=== PATIENT | female | born 1985 | race Two or more races ===

== ENCOUNTER 2020-01-26 00:41 | Inpatient (IN) | payer MEDICAID ==
[~2020-01-26] VITALS: Ht 167.6 cm; Wt 51.3 kg
[2020-01-26] MEDS ORDERED: METHYLPREDNISOLONE SOD SUCC 125 MG/2 ML VIAL IV STA (01:22)
[2020-01-26] MEDS ORDERED: SODIUM CHLORIDE 0.9% 1,000 ML IV ONE (01:22)
[2020-01-26] MEDS ORDERED: MAGNESIUM 2 G PREMIX 50 ML IV ONE (01:30)
[2020-01-26 02:01] LABS: *BARBITURATES SCREEN URINE NEGATIVE (NEGATIVE)
[2020-01-26 02:02] LABS: *BENZODIAZEPINES SCREEN URINE NEGATIVE (NEGATIVE); *COCAINE SCREEN URINE NEGATIVE (NEGATIVE); CANNABINOID URINE SCREEN NEGATIVE (NEGATIVE); METHADONE URINE SCREEN NEGATIVE (NEGATIVE); PHENCYCLIDINE URINE SCREEN NEGATIVE (NEGATIVE)
[2020-01-26 02:04] LABS: *AMPHETAMINES SCREEN URINE PRESUMTIVE POSITIVE (NEGATIVE); OPIATES URINE SCREEN PRESUMTIVE POSITIVE (NEGATIVE)
[2020-01-26 02:25] LABS: BG DEOXYHEMOGLOBIN 6.8 % (0.0-5.0); BG FRACTION INSPIRED OXYGEN 28; BG METHEMOGLOBIN 0.2 % (0.0-1.5); BG OXYGEN SATURATION 93.1 % (92.0-98.5); BG PCO2 44.3 mmHg (35.0-45.0); BG PH 7.333 (7.350-7.450); BG PO2 70.9 mmHg (75.0-100.0); BG SAMPLE SITE RIGHT BRACHIAL; BG TOTAL HEMOGLOBIN 14.5 g/dL (12.0-18.0); BG VENT MODE NASAL CANNULA
[2020-01-26 02:42] LABS: BASOPHILS % 0.6 % (0.0-2.0); EOSINOPHILS % 2.2 % (0.0-5.0); HEMATOCRIT. 47.1 % (36.0-48.0); HEMOGLOBIN. 15.8 g/dL (12.0-16.0); LYMPHOCYTES % 8.8 % (20.0-50.0); MEAN CORPUSCULAR HEMOGLOBIN 27.9 pg (28.0-32.0); MEAN CORPUSCULAR VOLUME 83.2 fL (81.0-99.0); MEAN PLATELET VOLUME 7.8 fl (7.4-10.4); MONOCYTES % 2.6 % (2.0-8.0); NEUTROPHILS % 85.8 % (40.0-76.0); PLATELET 334 x1000/uL (130-400); RED BLOOD CELL COUNT 5.67 mill/uL (4.2-5.4); RED CELL DISTRIBUTION WIDTH 14.5 % (11.6-14.6)
[2020-01-26 02:46] LABS: CHLORIDE 104 mEq/L (98-107)
[2020-01-26] MEDS ORDERED: ACETAMINOPHEN 325MG TABLET PO PRN ×2 (06:30)
[2020-01-26] MEDS ORDERED: KETOROLAC 15MG/ML VIAL IV PRN (06:30)
[2020-01-26] MEDS ORDERED: ONDANSETRON HCL 4MG/2ML INJ IV PRN (06:30)
[2020-01-26] MEDS ORDERED: CLONIDINE 0.1MG TABLET PO PRN (06:30)
[2020-01-26] MEDS ORDERED: IPRATROPIUM/ALBUTEROL 0.5-3(2.5)MG/3ML NEB HHN SCH (06:30)
[2020-01-26] MEDS ORDERED: DOCUSATE SODIUM 100MG CAPSULE PO PRN (06:30)
[2020-01-26] MEDS ORDERED: GUAIFENESIN 200MG/10ML SUGAR FREE UDC PO PRN (06:30)
[2020-01-26] MEDS ORDERED: LORAZEPAM 0.5MG TABLET PO PRN (06:30)
[2020-01-26] MEDS ORDERED: NITROGLYCERIN 0.4MG TABLET SL SL PRN (06:30)
[2020-01-26] MEDS ORDERED: MAGNESIUM/ALUMINUM HYDROXIDE/SIMETHICONE 30ML UDC PO PRN (06:30)
[2020-01-26] MEDS ORDERED: IPRATROPIUM/ALBUTEROL 0.5-3(2.5)MG/3ML NEB NEB PRN (06:30)
[2020-01-26] MEDS: METHYLPREDNISOLONE SOD SUCC 125 MG/2 ML VIAL IV SCH ×3 (08:29→22:13)
[2020-01-26] MEDS ORDERED: AZITHROMYCIN 500 MG in DEXT 5% WATER 250 ML IV SCH (09:00)
[2020-01-26] MEDS: ENOXAPARIN 40MG/0.4ML SYR SUBCUT SCH (09:00)
[2020-01-26] MEDS ORDERED: FAMOTIDINE 20MG TABLET PO SCH (09:00)
[2020-01-26] MEDS: ZINC SULFATE 220 MG ( 50 ) CAPSULE PO SCH (09:54)
[2020-01-26] MEDS: GUAIFENESIN/DM 600MG/30MG ER TAB 12HR PO SCH ×2 (09:54→22:12)
[2020-01-26] MEDS: ASCORBIC ACID 500 MG TABLET PO SCH ×2 (09:54→22:12)
[2020-01-26 15:43] LABS: CREATINE KINASE 46 IU/L (26-192)
[2020-01-26 15:44] LABS: CREATINE KINASE MB FRACTION < 1.0 ng/mL (0.5-3.6)
[2020-01-26] MEDS ORDERED: ZOLPIDEM TARTRATE 5MG TABLET PO PRN (21:00)
[2020-01-26 21:30] VITALS: BP 110/65
[2020-01-26] MEDS: FAMOTIDINE 10MG TABLET PO SCH (22:12)
[2020-01-26 23:07] VITALS: BP 110/65
[2020-01-27] MEDS ORDERED: ALBUTEROL 6.7GM HFA INHALER ORI SCH
[2020-01-27 00:09] LABS: CREATINE KINASE 42 IU/L (26-192)
[2020-01-27 00:10] LABS: CREATINE KINASE MB FRACTION < 1.0 ng/mL (0.5-3.6)
[2020-01-27 00:42] VITALS: BP 114/72
[2020-01-27] MEDS: METHYLPREDNISOLONE SOD SUCC 125 MG/2 ML VIAL IV SCH ×2 (07:13→14:00)
[2020-01-27 07:54] VITALS: BP 116/68
[2020-01-27] MEDS: ZINC SULFATE 220 MG ( 50 ) CAPSULE PO SCH (08:47)
[2020-01-27] MEDS: ENOXAPARIN 40MG/0.4ML SYR SUBCUT SCH ×2 (08:47→08:54)
[2020-01-27] MEDS: FAMOTIDINE 10MG TABLET PO SCH (08:47)
[2020-01-27] MEDS: ASCORBIC ACID 500 MG TABLET PO SCH (08:47)
[2020-01-27] MEDS: GUAIFENESIN/DM 600MG/30MG ER TAB 12HR PO SCH (08:47)
[2020-01-27] MEDS ORDERED: AZITHROMYCIN 250 MG in DEXT 5% WATER 250 ML IV SCH (09:00)
[2020-01-27 12:00] VITALS: BP 133/85
[2020-01-27 15:09] VITALS: BP 133/85
== END 2020-01-27 16:45 | disposition home or self-care (01) | DRG 133 ==
LOC: ER 00:41 → EDBEDREQTM 01:57 → 7WST 04:31 → EDBEDREQ 04:37 → EDBEDREQSVC 04:37 → EDBEDREQTM 04:37 → ENRESERV 19:43 → 8WST 01-27 03:53
PROVIDERS: ADMIT Internal Medicine; ATTEND Internal Medicine
DX: J96.01 Acute respiratory failure with hypoxia (principal); J18.9 Pneumonia, unspecified organism; J45.901 Unspecified asthma with (acute) exacerbation; F19.10 Other psychoactive substance abuse, uncomplicated; Z20.828 Contact with and (suspected) exposure to other viral communicable diseases; E87.2 Acidosis
CPT/HCPCS: 36415; 36600; 71045; 80053; 80061; 80305; 82375; 82550; 82553; 82805; 83036; 83605; 83880; 84145; 84484; 85025; 93005; 93970; 99291; J0456; J1650; J2930; J3475; J7030; J7060; U0003-CS